=== PATIENT | female | born 1980 ===

== ENCOUNTER 2020-06-14 09:37 | Outpatient (CLI) | payer OTHER | END 2020-06-14 09:47 | disposition home or self-care (01) | LOC: MAMO-SONO 09:37 | PROVIDERS: ATTEND Internal Medicine Cardiovascular Disease | DX: N63.11 Unspecified lump in the right breast, upper outer quadrant (principal) ==

== ENCOUNTER 2021-03-30 07:51 | Outpatient (CLI) | payer OTHER | END 2021-03-30 08:05 | disposition home or self-care (01) | LOC: SONOGRAMA 07:51 | PROVIDERS: ATTEND Obstetrics & Gynecology | DX: N83.201 Unspecified ovarian cyst, right side (principal) ==

== ENCOUNTER 2021-08-22 13:27 | Outpatient (CLI) | payer OTHER | END 2021-08-22 13:28 | disposition home or self-care (01) | LOC: MAMO-SONO 13:27 | PROVIDERS: ATTEND Obstetrics & Gynecology | DX: N60.09 Solitary cyst of unspecified breast (principal) ==

== ENCOUNTER 2021-11-01 09:53 | Outpatient (CLI) | payer OTHER | END 2021-11-01 09:56 | disposition home or self-care (01) | LOC: SONOGRAMA 09:53 | PROVIDERS: ATTEND Pathology Anatomic Pathology | DX: N60.01 Solitary cyst of right breast (principal); D24.1 Benign neoplasm of right breast ==

== ENCOUNTER 2022-12-19 10:13 | Outpatient (CLI) | payer OTHER | END 2022-12-19 10:19 | disposition home or self-care (01) | LOC: MAMO-SONO 10:13 | PROVIDERS: ATTEND Obstetrics & Gynecology | DX: N60.09 Solitary cyst of unspecified breast (principal); Z12.31 Encounter for screening mammogram for malignant neoplasm of breast ==

== ENCOUNTER → 2022-12-19 11:54 | Outpatient (CLI) | payer OTHER ==
[2022-12-19 12:38] LABS: PH,URINE 6.5 (5.0-8.0); URINE APPEARANCE Clear; URINE BILIRRUBIN Negative (NEGATIVE); URINE BLOOD Large; URINE COLOR Yellow; URINE GLUCOSE Negative (NEGATIVE); URINE LEUKOCYTE Negative; URINE NITRATE Negative; URINE PROTEIN Negative (NEGATIVE)
[2022-12-19 12:40] LABS: URINE BACTERIA 12.5 uL (0.0-1933); URINE EPITHELIAL CELLS 19.3 uL (0.0-38.8)
[2022-12-19 12:42] LABS: HEMATOCRIT 33.6 % (36.0-45.00); HEMOGLOBIN 11.2 g/dL (12.0-15.00); MEAN CELL VOLUME 87.3 fL (80.00-100.00); MEAN CORPUSCULAR HEMOGLOBIN 29.1 pg (27.00-32.0); MEAN CORPUSCULAR HGB CONC 33.4 g/dl (32.0-36.0); PLATELET COUNT 218 K/uL (150-450); RED BLOOD COUNT 3.85 M/uL (4.00-6.00); RED CELL DISTRIBUTION WIDTH 13.8 % (11.5-14.5)
[2022-12-19 13:39] LABS: ALBUMIN 4.1 gm/dL (3.4-5.0); BILIRUBIN TOTAL 0.58 mg/dL (0.3-1.2); CALCIUM 9.6 mg/dL (8.5-10.1); CHOL HDL RATIO 2.7 (0-5.0); CREATININE SERUM 0.63 mg/dL (0.55-1.02); GFR 103.63; GLOBULINA 3.7 G/DL (2.4-3.5); POTASSIUM 4.2 mEq/L (3.5-5.1); TOTAL PROTEIN 7.8 gm/dL (6.4-8.2); TSH 1.52 uIU/mL (0.358-3.74)
== END | disposition home or self-care (01) ==
LOC: LAB 11:54
PROVIDERS: ATTEND Obstetrics & Gynecology
DX: D64.9 Anemia, unspecified (principal); N39.0 Urinary tract infection, site not specified; Q78.0 Osteogenesis imperfecta; E03.9 Hypothyroidism, unspecified; E13.9 Other specified diabetes mellitus without complications

== ENCOUNTER 2023-02-24 07:33 | Outpatient (CLI) | payer OTHER | END 2023-02-24 07:37 | disposition home or self-care (01) | LOC: SONOGRAMA 07:33 | PROVIDERS: ATTEND Obstetrics & Gynecology | DX: D25.9 Leiomyoma of uterus, unspecified (principal) ==

== ENCOUNTER 2024-05-01 10:29 | Outpatient (CLI) | payer OTHER ==
[2024-05-01 12:54] LABS: HEMATOCRIT 27.9 % (36.0-45.00); MEAN CELL VOLUME 79.4 fL (80.00-100.00); MEAN CORPUSCULAR HEMOGLOBIN 26.4 pg (27.00-32.0); MEAN CORPUSCULAR HGB CONC 33.4 g/dl (32.0-36.0); PLATELET COUNT 267 K/uL (150-450); RED BLOOD COUNT 3.52 M/uL (4.00-6.00); RED CELL DISTRIBUTION WIDTH 16.5 % (11.5-14.5)
[2024-05-01 12:55] LABS: HEMOGLOBIN 9.3 g/dL (12.0-15.00)
[2024-05-01 13:09] LABS: ALBUMIN 3.9 gm/dL (3.4-5.0); BILIRUBIN TOTAL 0.48 mg/dL (0.3-1.2); CHOL HDL RATIO 2.1 (0-5.0); CREATININE SERUM 0.56 mg/dL (0.55-1.02); GFR 118.15; GLOBULINA 3.3 G/DL (2.4-3.5); POTASSIUM 3.99 mEq/L (3.5-5.1); TOTAL PROTEIN 7.2 gm/dL (6.4-8.2)
== END 2024-05-01 10:38 | disposition home or self-care (01) ==
LOC: LAB 10:29
DX: I10 Essential (primary) hypertension (principal)